=== PATIENT | male | born 1980 | race Hispanic/Latino ===

== ENCOUNTER 2016-07-28 07:38 | Emergency (ER) | payer SELFPAY | END 2016-07-28 08:15 | disposition home or self-care (01) | LOC: MADERS 07:38 | DX: H92.01 Otalgia, right ear (principal); Z79.899 Other long term (current) drug therapy | CPT/HCPCS: 99282 ==

== ENCOUNTER 2017-08-12 10:22 | Emergency (ER) | payer SELFPAY ==
[2017-08-12] MEDS ORDERED: Sulfameth/Trimethoprim DS 800-160mg TAB ONE (10:41)
[2017-08-12] MEDS ORDERED: Adacel (T-DAP) 0.5 ML VIAL ONE (10:41)
[2017-08-12] MEDS ORDERED: Naproxen 500 MG TAB ONE (11:05)
== END 2017-08-12 11:22 | disposition home or self-care (01) ==
LOC: MADERS 10:22
DX: S61.211A Laceration without foreign body of left index finger without damage to nail, initial encounter (principal); F41.9 Anxiety disorder, unspecified; F17.220 Nicotine dependence, chewing tobacco, uncomplicated; Z79.899 Other long term (current) drug therapy; W26.8XXA Contact with other sharp object(s), not elsewhere classified, initial encounter
CPT/HCPCS: 90471; 90715

== ENCOUNTER 2018-02-25 18:25 | Emergency (ER) | payer SELFPAY ==
[2018-02-25] MEDS ORDERED: Diazepam 5 MG TAB ONE (18:51)
[2018-02-25] MEDS ORDERED: Ketorolac Tromethamine 30 MG/ML VIAL ONE (18:52)
--- NOTE | 2018-02-25 20:03 | CT ---
CT OF THE CERVICAL SPINE WITHOUT CONTRAST: 02/25/18 COMPARISON: None. HISTORY: Neck injury with neck pain. TECHNIQUE: Multiple contiguous axial images were obtained in a CT of the cervical spine without contrast. Sagitt al and coronal reformats were performed. FINDINGS: There is a fracture of the spinous process of C7 with surrounding soft tissue swelling. No fractures of the vertebral bodies are seen. No subluxation of the vertebral bodies is present. Mild degenerati ve changes are seen in the cervical spine. No prevertebral soft tissue swelling is seen. The posterior facets are well aligned without evidence of perched facet or dislocation of one of the facets. Normal alignment of the skull base with the cervical spine is seen. The visualized lung apices are unremarkable. IMPRESSION: C7 spinous process fracture. POS: [facility]
--- NOTE | 2018-02-25 20:06 | CT ---
CT OF THE THORACIC SPINE WITHOUT CONTRAST: 02/25/18 COMPARISON: None. HISTORY: Injury with neck and back pain. TECHNIQUE: Multiple contiguous axial images were obtained in a CT of the thoracic spine without contrast. Sagitt al and coronal reformats were performed. FINDINGS: A fracture of the C7 spinous process is again seen. The thoracic vertebral bodies demonstrate normal height and alignment without fracture or subluxation. No fractures of lateral or posterior elements i n the thoracic spine are seen. No prevertebral soft tissue swelling is seen. The visualized prevertebral and paraspinal soft tissues are unremarkable. IMPRESSION: 1. No evidence of acute osseous abnormality of the thoracic spine. 2. C7 spinous process fracture. POS: [facility]
== END 2018-02-25 20:00 | disposition home or self-care (01) ==
LOC: MADERS 18:25
DX: S12.600A Unspecified displaced fracture of seventh cervical vertebra, initial encounter for closed fracture (principal); F41.9 Anxiety disorder, unspecified; F17.220 Nicotine dependence, chewing tobacco, uncomplicated; Z79.899 Other long term (current) drug therapy; X50.9XXA Other and unspecified overexertion or strenuous movements or postures, initial encounter
CPT/HCPCS: 72125; 72128; 96372; J1885

== ENCOUNTER 2020-05-28 11:42 | Emergency (ER) | payer SELFPAY | END 2020-05-28 13:10 | disposition home or self-care (01) | LOC: MADERS 11:42 | DX: F41.9 Anxiety disorder, unspecified (principal); F13.239 Sedative, hypnotic or anxiolytic dependence with withdrawal, unspecified; R03.0 Elevated blood-pressure reading, without diagnosis of hypertension; Z87.891 Personal history of nicotine dependence | CPT/HCPCS: 99283 ==